=== PATIENT | female | born 1960 | race Caucasian/White ===

== ENCOUNTER 2018-04-13 09:50 | Day surgery (SDC) | payer OTHER ==
[2018-04-13] MEDS ORDERED: IBUPROFEN 600 MG TAB PO (14:30)
[2018-04-13] MEDS ORDERED: KETOROLAC 30 MG INJ IV (14:30)
[2018-04-13] MEDS ORDERED: ONDANSETRON 4 MG INJ IV (15:30)
[2018-04-13] MEDS ORDERED: hydrALAzine 20 MG INJ IV (15:30)
[2018-04-13] MEDS ORDERED: morphine (1 MG/ML) 10ML SYRINGE IV (15:30)
[2018-04-13] MEDS ORDERED: OXYCODONE/ACETAMINOPHEN (5/325) TAB PO ×2 (15:30)
[2018-04-13] MEDS ORDERED: MEPERIDINE 25 MG INJ IV (15:30)
[2018-04-13] MEDS ORDERED: TRIMETHOBENZAMIDE 100 MG/ML VIAL IM (15:30)
[2018-04-13] MEDS ORDERED: LABETALOL HCL 20MG INJ IV (15:30)
[2018-04-13] MEDS ORDERED: HYDROmorphONE 1 MG/5 ML IV SYRINGE IV (15:30)
[2018-04-13] MEDS ORDERED: DIPHENHYDRAMINE 50 MG INJ IV (15:30)
[2018-04-13] MEDS ORDERED: FENTAnyl 50 MCG/ML VIAL IV (15:30)
[2018-04-13] MEDS ORDERED: METOCLOPRAMIDE 10 MG INJ IV (15:30)
[2018-04-13] MEDS ORDERED: PROCHLORPERAZINE 10 MG INJ IV (15:30)
== END 2018-04-13 16:39 | disposition home or self-care (01) ==
LOC: SDS 09:50
DX: N87.1 Moderate cervical dysplasia (principal)
CPT/HCPCS: 58120; 71045; 84703; 88305; 93005

== ENCOUNTER 2019-03-01 06:46 | Day surgery (SDC) | payer OTHER ==
[2019-03-01] MEDS ORDERED: PROPOFOL 200 MG INJ (07:00)
[2019-03-01] MEDS ORDERED: LIDOCAINE 2% (SDV) 5 ML INJ (08:20)
[2019-03-01] MEDS ORDERED: PROPOFOL 60 ML (08:20)
[2019-03-01] MEDS ORDERED: ALBUTEROL 0.083% (NEB) 2.5 MG/3 ML AMP HHN (08:30)
[2019-03-01] MEDS ORDERED: ONDANSETRON 4 MG INJ IV (08:30)
[2019-03-01] MEDS ORDERED: ACETAMINOPHEN 500 MG TAB PO (08:30)
[2019-03-01] MEDS ORDERED: FENTAnyl 50 MCG/ML VIAL IV (08:30)
== END 2019-03-01 11:04 | disposition home or self-care (01) ==
LOC: GIL 06:46
DX: Z12.11 Encounter for screening for malignant neoplasm of colon (principal); K29.50 Unspecified chronic gastritis without bleeding; K64.9 Unspecified hemorrhoids
CPT/HCPCS: 43239; 88305; 88312; 88313